=== PATIENT | male | born 1990 | race Caucasian/White ===

== ENCOUNTER 2017-01-02 08:36 | Emergency (ER) | payer SELFPAY ==
--- NOTE | 2017-01-02 08:58 | ED Physician Documentation ---
Upper Respiratory Symptoms - HISTORIAN Historian: patient - HPI Stated Complaint: cough/chest pain Chief Complaint: Cough/ Upper Respiratory Additional Information: onset 1 week ago prod greenish cough now low chest pain worse w/cough occ chills perhaps fever - pos lethargy Duration: intermittent episodes Context: recent foreign travel. denies: insect bite(s), tick(s) Severity: moderate Associated Symptoms: fever, chills Worsened by Deep Breath: Yes - ROS CONST/EYES: weakness. denies: eye redness, eye itching CVS/RESP: none LYMPH: denies: leg swelling, rash, swollen glands, ankle swelling GI/: none - PAST HX Lung Disease: none Surgeries/Procedures: none Immunizations: denies: UTD (no flu vaccine) Allergies/Adverse Reactions: Allergies Allergy/AdvReac Type Severity Reaction Status Date / Time No Known Allergies Allergy Unverified 01/02/17 08:48 Home Medications: Ambulatory Orders Medication Instructions Recorded Azithromycin 500 mg PO D #5 tablet 01/02/17 - SOCIAL HX Smoking History: greater than 1 pack/day Alcohol Use: heavy (on week ends) Drug Use: marijuana (occ) - FAMILY HX Family History: no significant history - VITAL SIGNS Vital Signs: Vital Signs Temp Pulse Resp BP Pulse Ox 97.2 F L 79 18 141/82 97 01/02/17 08:36 01/02/17 08:36 01/02/17 08:36 01/02/17 08:36 01/02/17 08:36 - REVIEWED ASSESSMENTS Nursing Assessment Reviewed: Yes Vitals Reviewed: Yes Upper Respiratory Symptoms - EXAM General Appearance: mild distress EENT: eyes nml inspection, maxillary. No: pale conjunctivae, conjunctival erythema, TM erythema, TM dullness (R), TM dullness (L) Neck: normal inspection. No: lymphadenopathy, stiff neck Respiratory: no resp. distress, speaks full sentences, wheezes, rhonchi ( various areas - shifts w/ deep breath of cough). No: breath sounds nml, respiratory distress Abdomen: non-tender CVS: reg rate & rhythm, heart sounds normal Skin: color nml, no rash, warm,dry. No: cyanosis, diaphoresis Extremities: non-tender Neuro/Psych: oriented x3, mood/affect nml Discharge Clincal Impression: acute bronchitis Prescriptions: Azithromycin 500 mg PO D #5 tablet Referrals: Primary Doctor,No [Primary Care Provider] - 2 Days Comments: ddisc lab w pt - he prefers no furthur w/u. the ekg is normal Condition: Good Disposition: 01 HOME, SELF-CARE Decision to Admit: NO Decision Time: 09:01
[2017-01-02 09:05] VITALS: BP 134/79
== END 2017-01-02 08:59 | disposition home or self-care (01) ==
LOC: ED 08:36
DX: J20.9 Acute bronchitis, unspecified (principal)
CPT/HCPCS: 99283